=== PATIENT | female | born 1995 | race African-American/Black ===

== ENCOUNTER 2023-10-01 02:36 | Emergency (ER) | payer SELFPAY ==
[2023-10-01 02:38] VITALS: BP 116/69
--- NOTE | 2023-10-01 03:17 | ED.GENMED ---
History of Present Illness
General
Chief Complaint: Abdominal Symptoms
Source: patient and significant other
Exam Limitations: none
Time Seen by Provider: 10/01/23 03:16
Nursing documentation reviewed up to this point in time: agreed with
History of Present Illness
History of Present Illness:
27-year-old female presents with intractable nausea and vomiting. This been present for the last 3 hours. She states that her pain in her abdomen comes in waves. She does report diarrhea. She states that she has had identical symptoms in the
past that coincide with her menses. She does admit to smoking marijuana. Denies fever, chills, chest pain, or shortness of breath. Denies any previous health history.
Review of Systems
Review of Systems
Allergies reviewed?: Yes
Other source history: family
All Other Systems: ROS reviewed and negative except as documented in HPI and ROS
Constitutional: Reports no symptoms
EENT: Reports no symptoms
Respiratory: Reports no symptoms
Cardiac: Reports no symptoms
ABD/GI: Reports abdominal pain, nausea and vomiting
: Reports no symptoms
Musculoskeletal: Reports no symptoms
Skin: Reports no symptoms
Neurological: Reports no symptoms
Endocrine: Reports no symptoms
Hematologic/Lymphatic: Reports no symptoms
Psychiatric: Reports no symptoms
Phy Exam
General Physical Exam
General Presentation: moderate distress
General age: appears stated age
General Skin: warm and dry
General Habitus: normal
General Mental: alert
General Hydration: appears well hydrated
ENT Exam
ENT Exam: EOMI, pharynx normal, neck supple and normocephalic
Eye Exam
Eye Exam: PERRL, cornea clear and conjunctiva normal
Cardiovascular Exam
Cardiovascular Exam: regular rate/rhythm, no edema, no murmur and normal peripheral pulses
Pulmonary Exam
Pulmonary Exam: lungs clear, no respiratory distress, no rales, no crackles, no rhonchi, no stridor, no wheezing and no cough
Gastrointestinal Exam
Gastrointestinal Exam: normal bowel sounds, non tender, soft, no organomegaly, no pulsatile mass and non distended
Neurological Exam
Neurological Exam: alert, oriented x3, no motor deficits and speech normal
Musculoskeletal Exam
Musculoskeletal Exam: full ROM and no edema
Skin Exam
Skin Exam: normal color, warm/dry, no rash and no petechia
Psychiatric Exam
Psychiatric Exam: normal mood/affect
Course
Orders/Labs/Results
Orders:
Orders
10/01/23 02:55
0.9% Sodium Chloride 1000 ml [Nss] 1,000 ml IV BOLUS
Ondansetron Injectable [Zofran] 4 mg IV NOW STA
Test Result ONCE
10/01/23 03:24
Complete Blood Count/With Diff Urgent
Comprehensive Metabolic Panel Urgent
HCG, Serum Qualitative Screen Urgent
Lactic Acid Urgent
Lipase Urgent
10/01/23 03:52
Diphenhydramine [Benadryl] 12.5 mg IV NOW STA
Metoclopramide [Reglan] 10 mg IV NOW STA
10/01/23 04:43
Capsaicin [Zostrix-Hp 0.075% Cream] See Dose Instructions TOPICAL NOW STA
10/01/23 06:04
Morphine Sulfate 4 mg IV NOW STA
Ondansetron Injectable [Zofran] 4 mg IV NOW STA
Abnormal Lab Results
10/01/23
03:24
RBC 4.09 L 10^6/uL
(4.20-5.40)
Hct 36.4 L %
(37.0-47.0)
MCH 31.5 H pg
(27.0-31.0)
MPV 11.5 H fL
(7.4-10.4)
Absolute Monos (auto) 0.7 H 10^3/uL
(0.1-0.6)
Chloride 109 H mmol/L
(98-107)
Carbon Dioxide 16 L mmol/L
(22-30)
Glucose 134 H mg/dl
(70-99)
Lactic Acid 2.6 H mmol/L
(0.7-2.0)
10/01/23 03:24
10/01/23 03:24
Vital Signs
Initial and Last Documented VS:
Initial Vital Signs
Resp BP Pulse Ox
28 116/69 99
10/01/23 02:38 10/01/23 02:38 10/01/23 02:38
Last Documented Vital Signs
Temp Pulse Resp BP Pulse Ox
98.5 F 76 16 136/81 99
10/01/23 08:22 10/01/23 08:22 10/01/23 08:22 10/01/23 08:22 10/01/23 08:22
*Critical Care Note
Total Time (30-74mins, 75-104mins- exclusive of procedures): Not Applicable
Update Note
Update Note:
10/01/2023 0815 AM: Patient resting comfortably, in no acute distress. We did have an extensive conversation about her marijuana use. She states that she self medicates for her anxiety. She denies suicidal or homicidal ideation, intent, or plan.
She will follow-up with the [facility].
ED Attending Note
-
Portions of this chart may have been created with voice recognition software.� Occasional wrong word or��sound alike� substitutions may have occurred due to the inherent limitations of voice recognition software.
Discharge Plan
Departure
Patient Disposition: Home (Routine Discharge)
Date of Disposition: 10/01/23
Time of Disposition: 08:16
Patient with high blood pressure during this ER visit?: No
Condition: Good
Discharge Problem:
Intractable nausea and vomiting
Instructions: Nausea and Vomiting, Adult (DC), Abdominal Pain
Prescriptions:
New
ondansetron 4 mg tablet,disintegrating
4 mg PO HS PRN (Reason: nausea and vomiting) 4 Days Qty: 10 0RF
Referrals:
[facility] [Outside]
[facility] [Outside]
NONE,* [Family Provider] -
Activity Restrictions/Additional Instructions:
It was a pleasure meeting you and taking part in your care. We hope for your continued healing and wellness.
Please read discharge instructions in their entirety. However, they are for general education and may not describe your exact diagnosis at discharge. Information on your ER visit and medical conditions were discussed with you along with appropriate
follow up information...
If indicated, please take your medications as instructed and indicated on discharge paperwork.
Please schedule a follow up appointment as directed. Call to schedule an appointment
Please return to the emergency department with ANY change in, persisting, or worsening of symptoms. If any of your symptoms do not improve, or persist, or become more severe within 6-12 hours, please return to the emergency department for further
care.
Please return to the emergency department if you develop a headache, neck pain/stiffness, fever greater than 100.4F, chest pain, shortness of breath, persistent nausea, vomiting, slurred speech, difficulty walking, numbness/tingling, weakness, signs
of infection or any other symptoms that are worrisome to you.
If you have any questions or concerns please do not hesitate to call the Hospital at or E-mail me directly at [email or web address]
Interventions
Interventions:
*Risk Screen - Suicide Last Done: 10/01/23 04:00
*General Assessment Last Done: 10/01/23 04:00
*Neglect/Abuse Screening Last Done: 10/01/23 04:00
ED- Fall Risk Assessment Last Done: 10/01/23 04:00
*ED COVID-19 Vaccine History Last Done: 10/01/23 07:10
*Nursing Disposition Last Done: 10/01/23 08:54
UL-[id number]-Wdcblpptav Assessment Last Done: 10/01/23 07:10
Discharge Date and Time
Discharge Date/Time: 10/01/23 08:54
Print Language: [place]ET[place]ESE
[2023-10-01] MEDS: ZOFRAN 4 MG IV ×2 (03:18→06:30)
[2023-10-01] MEDS: NSS 1000 IV (03:22)
[2023-10-01 03:26] VITALS: BP 113/79
[2023-10-01 03:38] LABS: % Basophils 0.3 % (0-2); % Eosinophils 0.9 % (0-6); % Immature Granulocytes 0.4 % (0-0.5); % Lymphocytes 21.4 % (20.5-51.1); % Monocytes 7.4 % (1.7-9.3); % Neutrophils 69.6 % (42.2-75.2); Absolute Eosinophils 0.1 10^3/uL (0-0.7); Absolute Monocytes 0.7 10^3/uL (0.1-0.6); Absolute Neutrophils 6.4 10^3/uL (1.4-6.5); Hematocrit 36.4 % (37.0-47.0); Hemoglobin 12.9 g/dL (12.0-16.0); Mean Corp Hgb Conc. 35.4 g/dL (33.0-37.0); Mean Corpuscular Hgb 31.5 pg (27.0-31.0); Mean Platelet Volume 11.5 fL (7.4-10.4); Nucleated Red Blood Cells % 0 %; Platelet Count 189 10^3/uL (130-400); Red Blood Cell Count 4.09 10^6/uL (4.20-5.40); White Blood Cell Count 9.1 10^3/uL (4.8-10.8)
[2023-10-01 03:48] LABS: HCG, Serum Qualitative Screen Negative
[2023-10-01 03:49] LABS: Lactic Acid 2.6 mmol/L (0.7-2.0)
[2023-10-01 03:53] LABS: ALT (SGPT) 16 U/L (0-35); AST (SGOT) 28 U/L (14-36); Albumin 4.4 g/dl (3.5-5.0); Alkaline Phosphatase 59 U/L (38-126); Blood Urea Nitrogen 11 mg/dl (7-17); Calcium 9.7 mg/dl (8.4-10.2); Carbon Dioxide 16 mmol/L (22-30); Chloride 109 mmol/L (98-107); Glucose 134 mg/dl (70-99); Lipase 59 U/L (23-300); Potassium 3.9 mmol/L (3.5-5.1); Sodium 138 mmol/L (135-145); Total Bilirubin 1.1 mg/dl (0.2-1.3); Total Protein 7.5 g/dl (6.3-8.2); eGFR > 60.00
[2023-10-01] MEDS: REGLAN 10 MG IV (04:26)
[2023-10-01] MEDS: BENADRYL 12.5 MG IV (04:26)
[2023-10-01] MEDS: ZOSTRIX-HP 0.075% CREAM 1 APPLIC TOPICAL (05:19)
[2023-10-01] MEDS: MORPHINE SULFATE 4 MG IV (06:30)
[2023-10-01 06:52] VITALS: BP 101/77
--- NOTE | 2023-10-01 08:13 | EDRN ---
Dr. Hartmann currently at the pts bedside speaking with the pt
[2023-10-01 08:22] VITALS: BP 136/81
--- NOTE | 2023-10-01 08:22 | EDRN ---
Dr. Hartmann at the pts bedside speaking with the pt regarding discharge, provider explaining discharge instructions to the pt, VS WNL, no s/s of distress, no c/o pain, PIV discontinued and pressure dressing applied, discharge papers provided to
the pt and the pt verbalized understanding instructions
== END 2023-10-01 08:54 | disposition home or self-care (01) ==
LOC: EMR 02:36
PROVIDERS: EMERGENCY PHYSICIAN Student in an Organized Health Care Education/Training Program
DX: R11.2 Nausea with vomiting, unspecified (principal)
CPT/HCPCS: 99284; 96374; 96375 ×2; 96376; 96361; 80053; 83605; 83690; 84703; 85025